=== PATIENT | male | born 1980 | race Caucasian/White ===

== ENCOUNTER 2016-11-21 17:01 | Inpatient (IN) | payer OTHER ==
[~2016-11-21] VITALS: Ht 167.6 cm; Wt 86.8 kg
[~2016-11-21 17:01] MED LIST: GABA400C5 PO; LEVE500 PO; MAALSUS PO; REME15TA PO; SERO300T PO; VENL100T PO; ZOFR4TAB PO
[2016-11-21 18:02] VITALS: BP 136/74; PULSE 94; RESP 18; TEMP 98; O2SAT 99
[2016-11-21] MEDS ORDERED: GABA400C5 PO (18:11)
[2016-11-21] MEDS ORDERED: QUET1TAB11 PO (18:11)
[2016-11-21] MEDS ORDERED: CLON2TAB PO (18:11)
[2016-11-21] MEDS ORDERED: ACETAMINOPHEN 325 MG TAB PO PRN (18:45)
[2016-11-21] MEDS ORDERED: ALUMINUM/MAGNESIUM/SIMETH 30 ML CUP PO PRN (18:45)
[2016-11-21] MEDS ORDERED: LORazepam 2 MG/ML VIAL IM PRN (18:45)
[2016-11-21] MEDS ORDERED: MAGNESIUM HYDROXIDE SUSP 30 ML CUP PO PRN (18:45)
[2016-11-22] MEDS: LORazepam 1 MG TAB PO PRN ×3 (01:28→21:05)
[2016-11-22 05:42] VITALS: BP 123/77; PULSE 78; RESP 18; TEMP 98.3; O2SAT 99
[2016-11-22 08:04] LABS: ANION GAP 8 MEQ/L (5-15); BICARBONATE 28.1 MEQ/L (21.0-32.0); BLOOD UREA NITROGEN 11 MG/DL (7-18); CHLORIDE 104 MEQ/L (98-107); GLOMERULAR FILTRATION RATE 101 ML/MIN (>89); POTASSIUM 3.6 MEQ/L (3.5-5.1); SODIUM (NA) 140 MEQ/L (136-145)
[2016-11-22 08:05] LABS: LDL CHOLESTEROL 71 MG/DL (0-99)
[2016-11-22] MEDS: REMOVE OLD NICOTINE PATCH T-DERMAL SCH ×2 (08:37→12:23)
[2016-11-22] MEDS: NICOTINE 21 MG/24 HR PATCH T-DERMAL SCH ×2 (08:37→12:24)
[2016-11-22 10:34] VITALS: BP 115/72; PULSE 79
--- NOTE | 2016-11-22 12:17 | PD.CONS ---
HPI Service [facility] Consult Requested By Reason for Consult medical management Primary Care Physician Unknown Diagnoses: History of Present Illness patient is a 36 y/o male with history of depression, seizure disorder and drug abuse who was admitted to the psych unit for suicidal ideation. he says that he' s been off his medications for the past few days. he says that he was on methadone till ten days ago. he says that he was trying to taper down his methadone. he's on Keppra for the seizure but he says that he stopped taking it five days ago. the last seizure was a month and half ago. he denies any abdominal pain but complaining of some nausea and diarrhea. Review of Systems Constitutional: DENIES: Fever, Weight loss, Chills, Night Sweats Eyes: DENIES: Blurred vision, Diplopia, Vision loss, Double Vision Ears, nose, mouth, throat: DENIES: Tinnitus, Vertigo, Throat pain, Epistaxis Respiratory: DENIES: Apneas, Cough, Snoring, Wheezing, Hemoptysis, Sputum production, Shortness of breath Cardiovascular: DENIES: Chest pain, Palpitations, Syncope, Dyspnea on Exertion , PND, Lower Extremity Edema, Orthopnea, Claudication Gastrointestinal: COMPLAINS OF: Diarrhea, Nausea, DENIES: Abdominal pain, Black stools, Bloody stools, Constipation, Vomiting, Difficulty Swallowing, Anorexia Genitourinary: DENIES: Urinary frequency, Urgency, Hematuria, Dysuria Musculoskeletal: DENIES: Joint pain, Muscle aches, Stiffness, Joint Swelling Integumentary: DENIES: Rash Neurologic: DENIES: Abnormal gait, Headache, Localized weakness, Paresthesias, Seizures, Speech Problems, Tremor, Poor Balance Psychiatric: COMPLAINS OF: Suicidal Ideation, DENIES: Anxiety, Confusion, Mood changes, Depression, Hallucinations, Agitation, Homicidal Ideation, Delusions Past Family Social History Allergies: Coded Allergies: No Known Allergies (Unverified , 11/20/16) Past Medical History depression seizure disorder chronic back pain Past Surgical History gastric bypass surgery foot surgery Reported Medications clonazepam effexor remeron seroquel neurontin keppra Active Ordered Medications Current Medications Lorazepam (Ativan) 1 mg Q6H PRN PO MODERATE TO SEVERE ANXIETY Last administered on 11/22/16at 01:28; Start 11/21/16 at 18:45 Lorazepam (Ativan Inj) 1 mg Q6H PRN IM MODERATE TO SEVERE ANXIETY; Start 11/21 at 18:45 Acetaminophen (Tylenol) 650 mg Q4H PRN PO Pain 1-5 or Temp >101F Last administered on 11/22/16at 01:28; Start 11/21/16 at 18:45 Magnesium Hydroxide (Milk Of Magnesia Liq) 30 ml DAILY PRN PO CONSTIPATION; Start 11/21/16 at 18:45 Al Hydrox/Mg Hydrox/Simethicone (Mag-Al Plus Susp Liq) 30 ml Q6H PRN PO DYSPEPSIA; Start 11/21/16 at 18:45 Nicotine (Habitrol 21 Mg Patch.24 Hr) 1 patch DAILY T-DERMAL Last administered on 11/22/16at 08:37; Start 11/22/16 at 09:00 Miscellaneous Information 1 DAILY T-DERMAL Last administered on 11/22/16at 08: 37; Start 11/22/16 at 09:00 Family History not relevant to this consult. Social History smokes two packs a day. admits to using illicit drugs.doesn't drink. Physical Exam Vital Signs Vital Signs Date Time Temp Pulse Resp B/P Pulse Ox O2 Delivery O2 Flow Rate FiO2 11/22/16 10:34 79 115/72 11/22/16 05:42 98.3 78 18 123/77 99 11/21/16 18:02 98.0 94 18 136/74 99 Physical Exam GENERAL: This is a well-nourished, well-developed patient, in no apparent distress. SKIN: No rashes, ecchymoses or lesions. HEAD: Atraumatic. Normocephalic. No temporal or scalp tenderness. EYES: Pupils equal round and reactive. Extraocular motions intact. No scleral icterus. No injection or drainage. ENT: Nose without bleeding, purulent drainage or septal hematoma. Throat without erythema, tonsillar hypertrophy or exudate. Uvula midline. Airway patent. NECK: Trachea midline. No JVD or lymphadenopathy. Supple, nontender, no meningeal signs. CARDIOVASCULAR: Regular rate and rhythm without murmurs, gallops, or rubs. RESPIRATORY: Clear to auscultation. Breath sounds equal bilaterally. No wheezes , rales, or rhonchi. GASTROINTESTINAL: Abdomen soft, non-tender, nondistended. No hepato-splenomegaly , or palpable masses. No guarding. MUSCULOSKELETAL: Extremities without clubbing, cyanosis, or edema. No joint tenderness, effusion, or edema noted. No calf tenderness. Negative Homans sign bilaterally. NEUROLOGICAL: Awake and alert. Cranial nerves II through XII intact. Motor and sensory grossly within normal limits. Five out of 5 muscle strength in all muscle groups. Normal speech. Laboratory Laboratory Tests Test 11/22/16 06:50 Sodium Level 140 Potassium Level 3.6 Chloride Level 104 Carbon Dioxide Level 28.1 Anion Gap 8 Blood Urea Nitrogen 11 Creatinine 0.86 Estimat Glomerular Filtration 101 Rate Random Glucose 82 Calcium Level 8.5 Triglycerides Level 82 Cholesterol Level 171 LDL Cholesterol 71 HDL Cholesterol 84.0 Cholesterol/HDL Ratio 2.03 Result Diagram: 11/22/16 0650 Assessment and Plan Assessment and Plan A/P - suicidal ideation- management per psych -seizure disorder; non-compliant with medications- resume keppra and check the level -chronic back pain; resume neurontin -history of poly-substance drug abuse- reportedly was recently on methadone; will verify the history and dosage with methadone clinic thank you for the consult. Discussed Condition With the patient and RN. Tasha Garcia MD Nov 22, 2016 12:17
[2016-11-22] MEDS: levETIRAcetam 500 MG TAB PO SCH ×2 (12:23→20:22)
--- NOTE | 2016-11-22 12:41 | HHI.PR ---
Addendum To [facility] Progress Not Reason for addendum: Additonal documentation (methadone clinic was contacted and he's been discharged from methadone clinic.) Tasha Garcia MD Nov 22, 2016 12:41
[2016-11-22] MEDS ORDERED: GABAPENTIN 400 MG CAP PO SCH (13:00)
[2016-11-22 15:58] LABS: HEMOGLOBIN A1a 1.3 %; HEMOGLOBIN A1b 1.6 %; HEMOGLOBIN Ao 86.2 %; HEMOGLOBIN LA1C 1.7 %; HEMOGLOBIN P3 3.4 %
[2016-11-22 16:18] LABS: AUTOMATED NEUTROPHIL # 6.6 TH/MM3 (1.8-7.7); BASOPHIL % 0.3 % (0.0-2.0); EOSINOPHIL % 0.4 % (0.0-4.0); HEMATOCRIT 40.7 % (39.0-51.0); LYMPHOCYTE # 1.7 TH/MM3 (1.0-4.8); MEAN CELL VOLUME 75.3 FL (80.0-100.0); MEAN CORPUSCULAR HEMOGLOBIN 24.3 PG (27.0-34.0); MEAN CORPUSCULAR HGB CONC 32.3 % (32.0-36.0); MONO % 5.2 % (0.0-8.0); NEUT % 75.1 % (16.0-70.0); PLATELET COUNT 320 TH/MM3 (150-450); RED CELL DISTRIBUTION WIDTH 23.5 % (11.6-17.2); WHITE BLOOD COUNT 8.8 TH/MM3 (4.0-11.0)
[2016-11-22 16:22] LABS: HEMO FLAGS AUTO DIFF
[2016-11-22 16:54] LABS: OVALOCYTES 1+ (NORMAL); PLATELET ESTIMATE SMEAR NORMAL (NORMAL); PLATELET MORPHOLOGY NORMAL (NORMAL); SCAN/DIFF AUTO DIFF CONFIRMED
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
[2016-11-22] MEDS: GABAPENTIN 400 MG CAP PO SCH (18:00)
[2016-11-22 19:24] VITALS: BP 125/53; PULSE 85; RESP 17; TEMP 99.1; O2SAT 99
[2016-11-22] MEDS: MIRTAZAPINE 15 MG TAB PO SCH (20:22)
[2016-11-22] MEDS: QUEtiapine FUMARATE 200 MG TAB PO SCH (20:22)
[2016-11-23 05:27] VITALS: BP 113/70; PULSE 94; RESP 16; TEMP 97.3; O2SAT 98
[2016-11-23] MEDS: VENLAFAXINE HCL XR 75 MG CAP PO SCH (08:32)
[2016-11-23] MEDS: levETIRAcetam 500 MG TAB PO SCH ×2 (08:32→21:08)
[2016-11-23] MEDS: QUEtiapine FUMARATE 200 MG TAB PO SCH ×2 (08:32→21:08)
[2016-11-23] MEDS: GABAPENTIN 400 MG CAP PO SCH ×3 (08:32→18:09)
[2016-11-23] MEDS: LORazepam 1 MG TAB PO PRN ×3 (08:45→21:08)
[2016-11-23 12:19] LABS: BLOOD, URINE NEG (NEG); GLUCOSE,URINE NEG (NEG); KETONE, URINE NEG (NEG); NITRITE,URINE NEG (NEG); PH, URINE 7.5 (5.0-8.5); URINE COLOR YELLOW (YELLW/STRAW)
[2016-11-23 12:20] LABS: COMMENT (UR) CULT NOT INDICATED; CULTURE IF INDICATED CULT NOT INDICATED
--- NOTE | 2016-11-23 12:47 | HHI.PYPN ---
Subjective Remarks Patient seen in room laying quietly in bed only states "I'm going through withdrawal" there is no visual signs of this is speech rate and rhythm or slow and organized and no signs of tremor nervousness or anxiety. He focuses on his prior substance abuse and various treatment modalities he has experienced parity acknowledges continued suicidality for now continue medication and observation Review of Systems Other No change since 11/22 Objective Alert: Yes [place]: Person, Place, Date Mood: Calm Affect: Restricted Memory Intact: Comment (fair) Hallucinations: Other (denies) Delusions: No Delusion Type: Other (vigilant) Suicidal: Ideation (states is continuing) Homicidal: Ideation (denies) Insight/Judgement Poor Labs Test 11/22/16 11/23/16 15:48 12:12 White Blood Count 8.8 TH/MM3 Red Blood Count 5.40 MIL/MM3 Hemoglobin 13.1 GM/DL Hematocrit 40.7 % Mean Corpuscular Volume 75.3 FL Mean Corpuscular Hemoglobin 24.3 PG Mean Corpuscular Hemoglobin 32.3 % Concent Red Cell Distribution Width 23.5 % Platelet Count 320 TH/MM3 Mean Platelet Volume 9.0 FL Neutrophils (%) (Auto) 75.1 % Lymphocytes (%) (Auto) 19.0 % Monocytes (%) (Auto) 5.2 % Eosinophils (%) (Auto) 0.4 % Basophils (%) (Auto) 0.3 % Neutrophils # (Auto) 6.6 TH/MM3 Lymphocytes # (Auto) 1.7 TH/MM3 Monocytes # (Auto) 0.5 TH/MM3 Eosinophils # (Auto) 0.0 TH/MM3 Basophils # (Auto) 0.0 TH/MM3 CBC Comment AUTO DIFF Differential Comment AUTO DIFF CONFIRMED Platelet Estimate NORMAL Platelet Morphology Comment NORMAL Ovalocytes 1+ Red Cell Morphology Comment Urine Color YELLOW Urine Turbidity CLEAR Urine pH 7.5 Urine Specific [place] 1.011 Urine Protein NEG mg/dL Urine Glucose (UA) NEG mg/dL Urine Ketones NEG mg/dL Urine Occult Blood NEG Urine Nitrite NEG Urine Bilirubin NEG Urine Urobilinogen LESS THAN 2.0 MG/DL Urine Leukocyte Esterase NEG Urine WBC LESS THAN 1 /hpf Microscopic Urinalysis Comment CULT NOT INDICATED Vitals/IOs Vital Signs Date Time Temp Pulse Resp B/P Pulse Ox O2 Delivery O2 Flow Rate FiO2 11/23/16 05:27 97.3 94 16 113/70 98 Assessment & Plan Problem List: (1) Bipolar disorder, most recent episode depressed ICD Code: F31.30 (2) Post-traumatic stress disorder, chronic ICD Code: F43.12 Assessment & Plan Estimated LOS: days patient remained suicidal isolating focusing somewhat on his addictions and is "withdrawal" for now continue treatment no change Justification for Cont. Inpt. At this time patient was really decompensate a lower level of care Uche Ramos MD Nov 23, 2016 12:47
[2016-11-23 19:31] VITALS: BP 114/47; PULSE 80; RESP 16; TEMP 99.4; O2SAT 100
[2016-11-23] MEDS: MIRTAZAPINE 15 MG TAB PO SCH (21:08)
[2016-11-24 05:38] VITALS: BP 135/78; PULSE 96; RESP 18; TEMP 98.1; O2SAT 99
[2016-11-24] MEDS: REMOVE OLD NICOTINE PATCH T-DERMAL SCH (09:00)
[2016-11-24] MEDS: levETIRAcetam 500 MG TAB PO SCH ×2 (09:35→20:13)
[2016-11-24] MEDS: LORazepam 1 MG TAB PO PRN ×3 (09:35→22:16)
[2016-11-24] MEDS: QUEtiapine FUMARATE 200 MG TAB PO SCH ×2 (09:35→20:12)
[2016-11-24] MEDS: GABAPENTIN 400 MG CAP PO SCH ×3 (09:35→18:04)
[2016-11-24] MEDS: VENLAFAXINE HCL XR 75 MG CAP PO SCH (09:36)
[2016-11-24] MEDS: NICOTINE 21 MG/24 HR PATCH T-DERMAL SCH (09:37)
--- NOTE | 2016-11-24 14:17 | HHI.PR ---
Subjective Remarks Follow-up visit for seizure disorder, drug abuse. Patient seen today. Reports he is doing well. No reports of seizure episode. Denies pain and discomfort. Denies SOB/ dyspnea. Denies chestpain, palpitations, headaches, dizziness. Denies fevers, chills, n/v/d. Objective Vitals Vital Signs Date Time Temp Pulse Resp B/P Pulse Ox O2 Delivery O2 Flow Rate FiO2 11/24/16 05:38 98.1 96 18 135/78 99 11/23/16 19:31 99.4 80 16 114/47 100 Result Diagram: 11/22/16 1548 11/22/16 0650 Objective Remarks GENERAL: This is a well-nourished, well-developed patient, in no apparent distress. SKIN: No rashes, ecchymoses or lesions. HEAD: Atraumatic. Normocephalic. No temporal or scalp tenderness. EYES: Pupils equal round and reactive. Extraocular motions intact. No scleral icterus. No injection or drainage. ENT: Nose without bleeding. Throat without erythema. Uvula midline. Airway patent. NECK: Trachea midline. No JVD or lymphadenopathy. Supple. CARDIOVASCULAR: Regular rate and rhythm without murmurs, gallops, or rubs. RESPIRATORY: Clear to auscultation. Breath sounds equal bilaterally. No wheezes , rales, or rhonchi. GASTROINTESTINAL: Abdomen soft, non-tender, nondistended. Bowel sounds active 4. MUSCULOSKELETAL: Extremities without clubbing, cyanosis, or edema. No joint tenderness, effusion, or edema noted. NEUROLOGICAL: Awake and alert. Motor and sensory grossly within normal limits. No focal neuro deficit. Normal speech. A/P Problem List: (1) Bipolar disorder, most recent episode depressed ICD Code: F31.30 Status: Acute (2) Seizure disorder ICD Code: G40.909 Status: Acute Assessment and Plan Patient is a 36-year-old male who came into the hospital under [place] act for suicidal ideation. Patient is now admitted inpatient psychiatry unit. Consulted for medical management. Suicidal ideation, depression- psychiatry team managing Seizure disorder - restarted Keppra. Awaiting for Keppra levels possibly low due to noncompliance. Readjust medication as needed. - Seizure activity reported. Continue with seizure precaution. DVT prop ambulation Written by Braxton Meyers, acting as scribe for Dr. Elliott on 11/24/16 at 11: 44. The documentation accurately reflects the work performed [id number] by me on 11/24/16 at 1144 Braxton John Nov 24, 2016 14:17 Gus Elliott MD Nov 26, 2016 14:57
--- NOTE | 2016-11-24 16:26 | HHI.PYPN ---
Subjective Remarks Patient was seen and case discussed with nursing. Patient is pleasant and cooperative with exam. Patient says he has had chronic auditory hallucinations that are getting more excessive sedation since the holidays. They're telling him to hurt himself but is able to ignore them. Patient is complaining that his medications are not working. Behaving well on the unit. And denies active suicidal ideations thought content or plan Objective Alert: Yes [place]: Person, Place, Date Mood: Calm Affect: Restricted Memory Intact: Comment (fair) Hallucinations: Other (denies) Delusions: No Delusion Type: Other (vigilant) Suicidal: Ideation (states is continuing) Homicidal: Ideation (denies) Insight/Judgement Poor Vitals/IOs Vital Signs Date Time Temp Pulse Resp B/P Pulse Ox O2 Delivery O2 Flow Rate FiO2 11/24/16 05:38 98.1 96 18 135/78 99 Assessment & Plan Problem List: (1) Bipolar disorder, most recent episode depressed ICD Code: F31.30 (2) Post-traumatic stress disorder, chronic ICD Code: F43.12 Assessment & Plan Consider medication change. Continue current treatment plan Justification for Cont. Inpt. Patient would decompensate in a less restrictive setting Yogesh Hernandez DO Nov 24, 2016 16:26
[2016-11-24] MEDS: MIRTAZAPINE 15 MG TAB PO SCH (20:13)
[2016-11-25 06:00] VITALS: BP 112/63; PULSE 89; RESP 18; TEMP 98.1; O2SAT 100
[2016-11-25] MEDS: NICOTINE 21 MG/24 HR PATCH T-DERMAL SCH (09:00)
[2016-11-25] MEDS: REMOVE OLD NICOTINE PATCH T-DERMAL SCH (09:00)
[2016-11-25] MEDS: LORazepam 1 MG TAB PO PRN ×2 (09:37→17:00)
[2016-11-25] MEDS: GABAPENTIN 400 MG CAP PO SCH ×3 (09:37→17:41)
[2016-11-25] MEDS: QUEtiapine FUMARATE 200 MG TAB PO SCH ×2 (09:37→20:29)
[2016-11-25] MEDS: VENLAFAXINE HCL XR 75 MG CAP PO SCH (09:38)
[2016-11-25] MEDS: levETIRAcetam 500 MG TAB PO SCH ×2 (09:38→20:29)
--- NOTE | 2016-11-25 11:18 | HHI.PYPN ---
Subjective Remarks Patient seen and examined with counselor Danita and nursing staff. Chart reviewed. I note that patient has been utilizing his Ativan more or less maximally while awake, amounting to about 3 mg daily. I note from the hospitalist testing consultant's documentation that the patient has been discharged from the methadone clinic. I also see a nursing notes that the patient was found palming one of his psychotropic medication tablets. Case discussed with nursing staff who reports patient is medication seeking. Nursing staff also notes that patient's presentation of psychiatric symptomatology is quite variable. On my examination today, patient is somewhat dysphoric. He reports that he "came here because I was thinking of ending my life." He reports he feels little changed today. No reported urge to hurt himself on the inpatient unit. Enumerates psychosocial stressors. Reports a history of BPAD and prior suicide attempts by OD. Reports history of abuse of opiates. Says he doesn't like his roommate (who, incidentally, is being discharged today) and says he might beat roommate up if roommate irritates patient. I have explained that this behavior will not be tolerated. I have instructed patient to come to nursing staff if he has perceived issues with peers. Denies side effects from medications. Review of Systems Other No physical complaints today Objective Alert: Yes [place]: Person (O x 3) Mood: Depressed Affect: Restricted (dysphoric) Memory Intact: Comment (Seems intact on clinical exam) Hallucinations: Other (No AVH) Delusions: No Delusion Type: Other (No delusions) Suicidal: Ideation (Ongoing SI, no reported plan/intent) Homicidal: Ideation (No HI but see above) Insight/Judgement Fair Remarks Somewhat fidgety but no other abnormal motor movements noted. No hand tremor, no diaphoresis, no mydriasis, no lacrimation/rhinorrhea. Thought process linear. Speech within normal limits for rate, tone and volume. Labs Labs reviewed. Vitals/IOs Vital Signs Date Time Temp Pulse Resp B/P Pulse Ox O2 Delivery O2 Flow Rate FiO2 11/25/16 06:00 98.1 89 18 112/63 100 Assessment & Plan Problem List: (1) Adjustment disorder Assessment & Plan: Rule-out component of drug-induced mood disorder ICD Code: F43.20 (2) Opiate dependence ICD Code: F11.20 Assessment & Plan I suspect a component of drug induced mood disorder or conscious simulation in patient's presentation today. Antisocial traits are present in this patient. For his reported dysphoria, I'll titrate his Remeron at bedtime. Taper Ativan with plans to discontinue as I fear he is overusing this medication. We could replace this with Vistaril or another antihistamine if needed. Mouth checks given his attempts to palm a pill. Appreciate hospitalist testing consultant input. Continue other medications and care as ordered. Justification for Cont. Inpt. Concerns for impairment in safety. Discharge Planning Pending outcome of further observation Request HC Surrog/Guard Advoc?: No Problem Qualifiers (1) Adjustment disorder: Qualified Code: F43.21 - Adjustment disorder with depressed mood (2) Opiate dependence: Qualified Code: F11.20 - Uncomplicated opioid dependence Leo Mota MD Nov 25, 2016 11:18
[2016-11-25] MEDS ORDERED: LORazepam 2 MG/ML VIAL IM PRN (18:45)
[2016-11-25 19:33] VITALS: BP 126/86; PULSE 86; RESP 18; TEMP 98.4; O2SAT 98
[2016-11-25] MEDS: MIRTAZAPINE 15 MG TAB PO SCH (20:28)
[2016-11-26] MEDS: LORazepam 1 MG TAB PO PRN (00:45)
[2016-11-26] MEDS ORDERED: LORazepam 0.5 MG TAB PO PRN (02:03)
[2016-11-26 05:42] VITALS: BP 124/83; PULSE 91; RESP 18; TEMP 97.4; O2SAT 94
[2016-11-26] MEDS: QUEtiapine FUMARATE 200 MG TAB PO SCH ×2 (08:38→21:36)
[2016-11-26] MEDS: levETIRAcetam 500 MG TAB PO SCH ×2 (08:38→21:36)
[2016-11-26] MEDS: VENLAFAXINE HCL XR 75 MG CAP PO SCH (08:39)
[2016-11-26] MEDS: REMOVE OLD NICOTINE PATCH T-DERMAL SCH (08:40)
[2016-11-26] MEDS: NICOTINE 21 MG/24 HR PATCH T-DERMAL SCH (08:40)
[2016-11-26] MEDS: GABAPENTIN 400 MG CAP PO SCH ×3 (09:00→17:04)
--- NOTE | 2016-11-26 11:22 | HHI.PYPN ---
Subjective Remarks Patient seen and examined and case discussed in treatment team. Chart reviewed. Case discussed with nursing staff who reports patient has been no behavioral problem. Patient has been transferred to the 2600, lower acuity inpatient psychiatric unit. On my examination today, patient complains of AH "driving me crazy." His description of these is fairly vague, but I am able to gather that he feels they are deprecatory. He also complains of "racing thoughts." He voices ongoing vague SI with no specific plan or intent. He is pleased to have moved units. Denies side effects from medications. He wants to try lithium as he reports he had a good response to this in the past. We have discussed other possible management strategies with the patient, but after a discussion of the relative risks and benefits, he still wants to try the lithium. Review of Systems Other No physical complaints. Objective Alert: Yes [place]: Person (Again O x 3) Mood: Anxious, Depressed Affect: Restricted (dysphoric) Memory Intact: Comment (Seems intact on clinical exam) Hallucinations: Auditory (As above), Visual (No VH) Delusions: No Delusion Type: Other (No delusional material) Suicidal: Ideation (Ongoing vague SI. No plan or intent.) Homicidal: Ideation (No HI.) Insight/Judgement Fair Remarks No motoric abnormalities noted. TP linear. Speech wnl for rate, tone, volume. No signs of withdrawal noted. Labs Labs reviewed. No new labs. Keppra level pending. Vitals/IOs Vital Signs Date Time Temp Pulse Resp B/P Pulse Ox O2 Delivery O2 Flow Rate FiO2 11/26/16 05:42 97.4 91 18 124/83 94 Assessment & Plan Problem List: (1) Adjustment disorder Assessment & Plan: R/o Drug-induced mood d/o. R/o BPAD. R/o Component of symptom exaggeration/malingering. ICD Code: F43.20 (2) Opiate dependence ICD Code: F11.20 Assessment & Plan Add lithium 300mg BID with plans to check a level after the appropriate interval. Check a TSH prior to starting lithium. Renal function intact. Keppra level pending and hospitalist to follow up on this. D/c Ativan and replace with Atarax PRN anxiety as this has less abuse potential and we could consider scheduling this if helpful for anxiety. Continue other medications and care as ordered. Justification for Cont. Inpt. Observation for impairments in safety (none noted so far). Medication changes requiring monitoring. Discharge Planning Pending psychiatric stabilization. Request HC Surrog/Guard Advoc?: No Problem Qualifiers (1) Adjustment disorder: Qualified Code: F43.21 - Adjustment disorder with depressed mood (2) Opiate dependence: Qualified Code: F11.20 - Uncomplicated opioid dependence Leo Mota MD Nov 26, 2016 11:22
[2016-11-26] MEDS: hydrOXYzine HCL 50 MG TAB PO PRN (14:51)
[2016-11-26 19:26] VITALS: BP 141/83; PULSE 101; RESP 18; TEMP 98.6; O2SAT 98
[2016-11-26] MEDS: MIRTAZAPINE 15 MG TAB PO SCH (21:36)
[2016-11-26] MEDS: LITHIUM CARBONATE 300 MG TAB PO SCH (21:36)
[2016-11-27] MEDS: hydrOXYzine HCL 50 MG TAB PO PRN ×2 (05:20→15:45)
[2016-11-27 05:57] VITALS: BP 129/73; PULSE 75; RESP 16; TEMP 97.9
[2016-11-27] MEDS: QUEtiapine FUMARATE 200 MG TAB PO SCH (08:28)
[2016-11-27] MEDS: GABAPENTIN 400 MG CAP PO SCH ×2 (08:28→12:17)
[2016-11-27] MEDS: levETIRAcetam 500 MG TAB PO SCH ×2 (08:28→20:12)
[2016-11-27] MEDS: LITHIUM CARBONATE 300 MG TAB PO SCH ×2 (08:28→20:12)
[2016-11-27] MEDS: NICOTINE 21 MG/24 HR PATCH T-DERMAL SCH (08:28)
[2016-11-27] MEDS: REMOVE OLD NICOTINE PATCH T-DERMAL SCH (08:28)
[2016-11-27] MEDS: VENLAFAXINE HCL XR 75 MG CAP PO SCH (08:29)
--- NOTE | 2016-11-27 14:40 | HHI.PYPN ---
Subjective Remarks Patient seen and examined. Chart reviewed. Case discussed with nursing staff who reports patient told her that auditory hallucinations were decreasing. He is noted to be social on the unit. On my examination today, patient says that he is sleeping a little better but is still struggling with voices. He says that they are largely deprecatory and negative and happen all the time. Remains fairly dysphoric with some ongoing vague suicidal ideation. No reported urge to hurt himself on the inpatient psychiatric unit. Denies side effects from medications. Says that the hydroxyzine is not helping with his anxiety. Requests benzodiazepine, but when I discussed my concerns about use of these agents, particularly in light of his history of substance use disorder , he agrees to trying to titrate his gabapentin instead. Review of Systems Other no physical complaints today Objective Alert: Yes [place]: Person (O x 3) Mood: Anxious, Depressed Affect: Blunted Memory Intact: Comment (Intact) Hallucinations: Auditory (Deprecatory.), Visual (None) Delusions: No Delusion Type: Other (No evident delusions) Suicidal: Ideation (Once again ongoing vague SI. No plan or intent.) Homicidal: Ideation (No HI.) Insight/Judgement Fair Remarks No abnormal motor movements noted. Labs Labs reviewed. No new labs. Vitals/IOs Vital Signs Date Time Temp Pulse Resp B/P Pulse Ox O2 Delivery O2 Flow Rate FiO2 11/27/16 05:57 97.9 75 16 129/73 11/26/16 19:26 98 Assessment & Plan Problem List: (1) Bipolar disorder ICD Code: F31.9 (2) Opiate dependence ICD Code: F11.20 Assessment & Plan After a discussion of the risks and benefits with pt, titrate Seroquel to 400mg/ 600mg to target auditory phenomena. I have explained that this is slightly above the recommended maximum dose for this agent. Titrate gabapentin to manage anxiety. Continue other medications and care as ordered. Justification for Cont. Inpt. Impairment in safety. Risk for decompensation in lower level of care. Medication changes requiring monitoring. Discharge Planning Pending psychiatric stabilization Request HC Surrog/Guard Advoc?: No Problem Qualifiers (1) Bipolar disorder: Qualified Code: F31.32 - Bipolar affective disorder, currently depressed, moderate (2) Opiate dependence: Qualified Code: F11.20 - Uncomplicated opioid dependence Leo Mota MD Nov 27, 2016 14:40
[2016-11-27] MEDS: GABAPENTIN 100 MG CAP PO SCH (17:17)
[2016-11-27 19:38] VITALS: BP 129/73; PULSE 95; RESP 18; TEMP 98
[2016-11-27] MEDS: MIRTAZAPINE 15 MG TAB PO SCH (20:11)
[2016-11-27] MEDS: QUEtiapine FUMARATE 300 MG TAB PO SCH (20:12)
[2016-11-28 06:04] VITALS: BP 123/67; PULSE 77; RESP 16; TEMP 98.1
[2016-11-28] MEDS: REMOVE OLD NICOTINE PATCH T-DERMAL SCH (08:09)
[2016-11-28] MEDS: NICOTINE 21 MG/24 HR PATCH T-DERMAL SCH (08:09)
[2016-11-28] MEDS: LITHIUM CARBONATE 300 MG TAB PO SCH ×2 (08:09→21:18)
[2016-11-28] MEDS: GABAPENTIN 100 MG CAP PO SCH ×3 (08:09→17:06)
[2016-11-28] MEDS: VENLAFAXINE HCL XR 75 MG CAP PO SCH (08:09)
[2016-11-28] MEDS: QUEtiapine FUMARATE 200 MG TAB PO SCH (08:10)
[2016-11-28] MEDS: levETIRAcetam 500 MG TAB PO SCH ×2 (08:10→21:19)
--- NOTE | 2016-11-28 13:41 | HHI.PYPN ---
Subjective Remarks Patient was seen and discussed with the staff home therapy rn. Patient claimed that he has been under a lot of stress recently he became homeless he broke up in the relationship he lost his job in the past he used to abuse opiates and heroin. Place at the present time he denies any suicidal ideation or urges her intentions or plan. Patient denied any auditory or visual hallucinations. Patient wants some medication for his anxiety. He claimed that the Klonopin did seem to have helped him and he wants 0.5 mg maybe couple times a day even though he has a history of drug abuse I will try that and monitor that he does not get more or started abusing it. No other side effects were complained. Continue with the same treatment Review of Systems Psychiatric: COMPLAINS OF: Anxiety, Depression Other Review of systems same as that off11/27/16 Objective Alert: Yes [place]: Person (O x 3) Mood: Anxious, Depressed Affect: Blunted Memory Intact: Comment (Intact) Hallucinations: Auditory (auditory hallucinations are going down), Visual (None ) Delusions: No Delusion Type: Other (No evident delusions) Suicidal: Ideation (Once again ongoing vague SI. No plan or intent.) Homicidal: Ideation (No HI.) Insight/Judgement Fair Vitals/IOs Vital Signs Date Time Temp Pulse Resp B/P Pulse Ox O2 Delivery O2 Flow Rate FiO2 11/28/16 06:04 98.1 77 16 123/67 11/26/16 19:26 98 Assessment & Plan Problem List: (1) Bipolar disorder ICD Code: F31.9 (2) Opiate dependence ICD Code: F11.20 Assessment & Plan Estimated LOS: days Justification for Cont. Inpt. Risk of safety. Monitoring of the medication and observing his reaction to it and titrating it. Risk of decompensation Request HC Surrog/Guard Advoc?: No Problem Qualifiers (1) Bipolar disorder: Qualified Code: F31.32 - Bipolar affective disorder, currently depressed, moderate (2) Opiate dependence: Qualified Code: F11.20 - Uncomplicated opioid dependence Jun Lambert MD Nov 28, 2016 13:41
[2016-11-28] MEDS: clonazePAM 0.5 MG TAB PO PRN (15:14)
[2016-11-28 18:12] VITALS: BP 131/79; PULSE 90; RESP 18; TEMP 98.7
[2016-11-28] MEDS: QUEtiapine FUMARATE 300 MG TAB PO SCH (21:18)
[2016-11-28] MEDS: MIRTAZAPINE 15 MG TAB PO SCH (21:18)
[2016-11-29 05:18] VITALS: BP 110/70; PULSE 76; RESP 18; TEMP 97.7; O2SAT 98
[2016-11-29 07:57] LABS: BICARBONATE 31.2 MEQ/L (21.0-32.0); POTASSIUM 4.1 MEQ/L (3.5-5.1)
[2016-11-29] MEDS: NICOTINE 21 MG/24 HR PATCH T-DERMAL SCH (09:00)
[2016-11-29] MEDS: REMOVE OLD NICOTINE PATCH T-DERMAL SCH (09:00)
[2016-11-29] MEDS: LITHIUM CARBONATE 300 MG TAB PO SCH ×3 (09:12→21:39)
[2016-11-29] MEDS: VENLAFAXINE HCL XR 75 MG CAP PO SCH (09:12)
[2016-11-29] MEDS: GABAPENTIN 100 MG CAP PO SCH ×3 (09:12→17:27)
[2016-11-29] MEDS: QUEtiapine FUMARATE 200 MG TAB PO SCH ×2 (09:12→21:40)
[2016-11-29] MEDS: levETIRAcetam 500 MG TAB PO SCH ×2 (09:12→21:39)
--- NOTE | 2016-11-29 12:28 | HHI.PYPN ---
Subjective Remarks Patient is seen in day room with nurse Angie, patient calm cooperative with me acknowledges continued auditory or visual hallucinations though he does deny suicidality. He is concerned about his medications feeling that the regimen of the Seroquel at this time is somewhat sedating during the day. We will changes Seroquel regimen to 300 mg a.m. and 700 mg at bedtime. [place] level drawn today is 0.2 will increase the lithium tooth regimen milligrams a.m. 600 mg at bedtime and check a level on 12/02 Review of Systems Other No somatic complaints today Objective Alert: Yes [place]: Person (O x 3) Mood: Anxious, Depressed Affect: Blunted Memory Intact: Comment (Intact) Hallucinations: Auditory (auditory hallucinations are going down), Visual (None ) Delusions: No Delusion Type: Other (No evident delusions) Suicidal: Ideation (Once again ongoing vague SI. No plan or intent.) Homicidal: Ideation (No HI.) Insight/Judgement Poor to fair Labs Test 11/29/16 11/29/16 06:47 10:54 Sodium Level 141 MEQ/L Potassium Level 4.1 MEQ/L Chloride Level 103 MEQ/L Carbon Dioxide Level 31.2 MEQ/L Anion Gap 7 MEQ/L Blood Urea Nitrogen 13 MG/DL Creatinine 0.92 MG/DL Estimat Glomerular Filtration 94 ML/MIN Rate Random Glucose 83 MG/DL 131 MG/DL Calcium Level 9.5 MG/DL [place] Level 0.2 MEQ/L Vitals/IOs Vital Signs Date Time Temp Pulse Resp B/P Pulse Ox O2 Delivery O2 Flow Rate FiO2 11/29/16 05:18 97.7 76 18 110/70 98 Assessment & Plan Problem List: (1) Bipolar disorder ICD Code: F31.9 (2) Opiate dependence ICD Code: F11.20 Assessment & Plan Estimated LOS: days patient continue psychotic though with some insight, please see medication changes above Justification for Cont. Inpt. At this time patient would severely decompensated placed in the lower level of care Discharge Planning To be determined Request HC Surrog/Guard Advoc?: No Problem Qualifiers (1) Bipolar disorder: Qualified Code: F31.32 - Bipolar affective disorder, currently depressed, moderate (2) Opiate dependence: Qualified Code: F11.20 - Uncomplicated opioid dependence Uche Ramos MD Nov 29, 2016 12:28
[2016-11-29] MEDS ORDERED: PILL SPLITTER OTHER PRN (12:30)
[2016-11-29] MEDS: clonazePAM 0.5 MG TAB PO PRN (17:27)
[2016-11-29 19:26] VITALS: BP 164/99; PULSE 113; RESP 18; TEMP 98.8; O2SAT 98
[2016-11-29] MEDS: MIRTAZAPINE 15 MG TAB PO SCH (21:38)
[2016-11-30] MEDS: clonazePAM 0.5 MG TAB PO PRN ×2 (06:08→17:25)
[2016-11-30 06:10] VITALS: BP 103/54; PULSE 70; RESP 18; TEMP 98.2; O2SAT 99
[2016-11-30] MEDS: LITHIUM CARBONATE 300 MG TAB PO SCH ×2 (08:53→21:27)
[2016-11-30] MEDS: VENLAFAXINE HCL XR 75 MG CAP PO SCH (08:53)
[2016-11-30] MEDS: levETIRAcetam 500 MG TAB PO SCH ×2 (08:53→21:27)
[2016-11-30] MEDS: GABAPENTIN 100 MG CAP PO SCH ×3 (08:53→17:25)
[2016-11-30] MEDS: REMOVE OLD NICOTINE PATCH T-DERMAL SCH (08:54)
[2016-11-30] MEDS: NICOTINE 21 MG/24 HR PATCH T-DERMAL SCH (08:54)
[2016-11-30] MEDS ORDERED: QUEtiapine FUMARATE 300 MG TAB PO SCH (09:00)
--- NOTE | 2016-11-30 12:00 | HHI.PYPN ---
Subjective Remarks Patient seen and examined with nursing staff. Chart reviewed. Case discussed with nursing staff. On my examination today, the patient continues to complain of poor sleep and describes himself as irritable and exhausted. He shares that he has a history of Neda-en-Y gastric bypass, and we discussed that this might explain his need for larger than usual doses of psychotropic medications due to absorption issues. He reports that he usually awakens in the [employer], between 2 and 4:00am and feels anxious and has difficulty getting back to sleep. Denies side effects from medications. Review of Systems Other No physical complaints today Objective Alert: Yes [place]: Person (O x 3) Mood: Anxious (ongoing), Depressed Affect: Blunted Memory Intact: Comment (Intact) Hallucinations: Other (No AVH reported today) Delusions: No Delusion Type: Other (No delusions) Suicidal: Ideation (No SI) Homicidal: Ideation (No HI) Insight/Judgement Fair Remarks No motoric abnormalities noted Labs Labs reviewed. Glucose noted; non-fasting sample. Vitals/IOs Vital Signs Date Time Temp Pulse Resp B/P Pulse Ox O2 Delivery O2 Flow Rate FiO2 11/30/16 06:10 98.2 70 18 103/54 99 Assessment & Plan Problem List: (1) Bipolar disorder ICD Code: F31.9 (2) Opiate dependence ICD Code: F11.20 Assessment & Plan I will place patient's morning dose of Seroquel in the [employer] around 3 AM when the patient reportedly arises so that he can get back to sleep. Continue other psychotropics as ordered. Continue other medications as ordered. I will request the dietitian evaluate patient given his reported history of Neda-en-Y gastric bypass. I will also ask the nursing staff to have the hospitalist come back given that the Keppra level is back and is somewhat low. Continue other care as ordered. Justification for Cont. Inpt. Risk for decompensation Discharge Planning Per Dr. Fraser Request HC Surrog/Guard Advoc?: No Problem Qualifiers (1) Bipolar disorder: Qualified Code: F31.32 - Bipolar affective disorder, currently depressed, moderate (2) Opiate dependence: Qualified Code: F11.20 - Uncomplicated opioid dependence Leo Mota MD Nov 30, 2016 12:00
[2016-11-30] MEDS: hydrOXYzine HCL 50 MG TAB PO PRN (13:13)
[2016-11-30 18:00] VITALS: BP 135/75; PULSE 92; RESP 18; TEMP 99.4; O2SAT 98
[2016-11-30] MEDS: MIRTAZAPINE 15 MG TAB PO SCH (21:27)
[2016-11-30] MEDS: QUEtiapine FUMARATE 200 MG TAB PO SCH (21:28)
[2016-12-01] MEDS ORDERED: QUEtiapine FUMARATE 300 MG TAB PO SCH ×2 (03:00→21:00)
[2016-12-01 06:07] VITALS: BP 124/81; PULSE 87; RESP 16; TEMP 97.6
[2016-12-01] MEDS: clonazePAM 0.5 MG TAB PO PRN ×2 (06:09→20:14)
[2016-12-01] MEDS: VENLAFAXINE HCL XR 75 MG CAP PO SCH (08:53)
[2016-12-01] MEDS: levETIRAcetam 500 MG TAB PO SCH ×2 (08:54→21:24)
[2016-12-01] MEDS: GABAPENTIN 100 MG CAP PO SCH ×3 (08:55→17:02)
[2016-12-01] MEDS: LITHIUM CARBONATE 300 MG TAB PO SCH ×2 (08:55→21:24)
[2016-12-01] MEDS: REMOVE OLD NICOTINE PATCH T-DERMAL SCH (08:59)
[2016-12-01] MEDS: NICOTINE 21 MG/24 HR PATCH T-DERMAL SCH (08:59)
--- NOTE | 2016-12-01 14:25 | HHI.PYPN ---
Subjective Remarks Patient seen and examined. Chart reviewed. Case discussed with nursing staff. On my examination today, patient reports that he was able to get back to sleep a little better with the shot coat tender dose of Seroquel but still feels like he needs an additional dose around the 9:00 hour to help manage his psychiatric symptoms. He continues to describe troubling nightmares and some ongoing low mood but does not voice any suicidal ideation. He denies side effects from medications. Review of Systems Other No physical complaints today Objective Alert: Yes [employer]: Person, Place (at least) Mood: Anxious, Depressed Affect: Other (Some disconnect between mood and affect. Doesn't appear very anxious.) Memory Intact: Comment (Remains intact) Hallucinations: Other (No AVH) Delusions: No Delusion Type: Other (No evident delusions) Suicidal: Ideation (No suicidal ideation) Homicidal: Ideation (No HI) Insight/Judgement Fair. Remarks Thought processes linear. Speech within normal limits for rate. No motoric abnormalities noted. Labs Labs reviewed. No new labs. Vitals/IOs Vital Signs Date Time Temp Pulse Resp B/P Pulse Ox O2 Delivery O2 Flow Rate FiO2 12/01/16 06:07 97.6 87 16 124/81 11/30/16 18:00 98 Assessment & Plan Problem List: (1) Bipolar disorder ICD Code: F31.9 (2) Opiate dependence ICD Code: F11.20 Assessment & Plan Adjust Seroquel dosing to 200/200/600mg. Continue other psychotropics as ordered. Appreciate dietitian recommendations. I have ordered a B12, folate, iron level given his history of gastric bypass. [place] level ordered for early next week. Continue other medications and care as ordered. Justification for Cont. Inpt. Medication adjustments Discharge Planning Per Dr. Fraser Request HC Surrog/Guard Advoc?: No Problem Qualifiers (1) Bipolar disorder: Qualified Code: F31.32 - Bipolar affective disorder, currently depressed, moderate (2) Opiate dependence: Qualified Code: F11.20 - Uncomplicated opioid dependence Leo Mota MD Dec 01, 2016 14:25
[2016-12-01] MEDS: MIRTAZAPINE 15 MG TAB PO SCH (21:24)
[2016-12-02] MEDS: QUEtiapine FUMARATE 200 MG TAB PO SCH ×2 (03:02→09:21)
[2016-12-02 05:58] VITALS: BP 113/64; PULSE 78; RESP 16; TEMP 98.5; O2SAT 99
[2016-12-02] MEDS: clonazePAM 0.5 MG TAB PO PRN (08:15)
[2016-12-02] MEDS: REMOVE OLD NICOTINE PATCH T-DERMAL SCH (09:00)
[2016-12-02] MEDS: LITHIUM CARBONATE 300 MG TAB PO SCH (09:16)
[2016-12-02] MEDS: VENLAFAXINE HCL XR 75 MG CAP PO SCH (09:17)
[2016-12-02] MEDS: levETIRAcetam 500 MG TAB PO SCH (09:17)
[2016-12-02] MEDS: GABAPENTIN 100 MG CAP PO SCH ×2 (09:17→13:15)
[2016-12-02] MEDS: NICOTINE 21 MG/24 HR PATCH T-DERMAL SCH (09:19)
[2016-12-02] MEDS ORDERED: GABA100C4 PO (10:28)
[2016-12-02] MEDS ORDERED: QUET1TAB10 PO (10:28)
[2016-12-02] MEDS ORDERED: LITH300T3 PO ×2 (10:28)
[2016-12-02] MEDS ORDERED: MIRTA15 PO (10:28)
--- NOTE | 2016-12-02 10:52 | HHI.DS ---
Psychiatry Discharge Summary Inpatient Psychiatric care?: Yes Advance Directive: No Reason Not Provided: NA Mental Health AdvanceDirective: No Health Care Proxy: No Admission Admission Date Nov 21, 2016 at 17:50 Admission Diagnosis: (1) Bipolar disorder, most recent episode depressed ICD Code: F31.30 Brief History This 36 yo WM presented from [facility] on a [place] [facility] stating he had been off his psychiatric medications and now wants to kill himself stating "if I had a gun I would have shot myself by now". Today on the Unit he says he has been depressed "for a while" although paper work from [facility] states the mood disorder had lasted only 3 days. He states he has low energy, anhedonia, poor sleep, sadness and mixed features such as pressured speech, racing thoughts grandiosity and racing thoughts. He said he is not presently suicidal, although he admits when he was at [facility] he had thoughts of overdosing on medications. His present medications are Seroquel 400 mgs BID, Effexor 150 XR qd, gabapentin 400 mg tid Remeron 15 mg qHS Requip and Keppra. The patient also reports PTSD symptoms which he associates with abuse in childhood, dissociative symptoms, blackouts, and a very extensive opiate abuse history. The patient reports about 15 to 20 psychiatric hospitalizations in the last 20 months and about 3 suicide attempts in the last 6 months by OD with heroin, Seroquel and mixed medications. The patients substance abuse history is remarkable for treatment in a methadone clinic beginning in 2005 for years, followed by suboxone treatment for years, then again in a methadone clinic for 2 years and more recently by a relapse on heroine. Tobacco Use In Past 30 Days: 5 or More Cigarettes/Day Alcohol Use: Never Hospital Course Patient was initially started on Keppra, Seroquel 400 BID, Remeron 15 mg qHS and Neurontin 400 mg TID, and evaluated after a few days on these medications. He reported continued symptoms and these medications and a trial of lithium was begun. He tolerated this trial and on 300 q AM and 600 mgs q PM he eventually demonstrated a level of 0.5. The patients mood and cognition improved. His depression cleared and he began to think more clearly. He was treated by Dr Svetlana Norris and notes, nursing report and patient reports all indicate he is appropriate for discharge. Results Blood Pressure 113 / 64 Vital Signs Date Time Temp Pulse Resp B/P Pulse Ox O2 Delivery O2 Flow Rate FiO2 12/02/16 05:58 98.5 78 16 113/64 99 Laboratory Tests Test 11/29/16 12/01/16 10:54 19:57 Random Glucose 131 MG/DL (74-106) Iron Level 21 MCG/DL (65-175) Laboratory Results Test 12/02/16 06:26 [place] Level 0.5 MEQ/L (0.5-1.5) Summary of Procedures none Pending results at discharge: No Medications # of Antipsychotic meds at D/C: 1 Approp Antipsych med options 1 - Minimum of three failed multiple trials of monotherapy. 2 - Documented plan to taper to monotherapy due to previous use of multiple meds OR cross-taper in progress at D/C. 3 - Documentation of augmentation of Clozapine. 4 - Justification other than those listed in allowable values 1-3, document here : Discharge Discharge Date: Dec 02, 2016 Discharge Diagnosis: (1) Bipolar disorder, most recent episode depressed Diagnosis: Principal ICD Code: F31.30 Mental Status Exam at Disch casually dressed, speech reg rate rhythm and prosody, gait wnl, mood "good" affect wnl TP direct TC no si, hi, ah, vh Memory intact Insight and judgment fair Pt Condition on Discharge: Stable Discharge Disposition: Discharge Home Discharge Instructions Diet Instructions: As Tolerated, No Restrictions Activities you can perform: Regular-No Restrictions Scheduled Appointment: Ryan Wise Appointment Date: Dec 06, 2016 Appointment Time: 7:30 New Medications: Gabapentin (Gabapentin) 100 Mg Cap 500 MG PO TID neuropathy #90 CAP [place] Carbonate ([place] Carbonate) 300 Mg Tab 300 MG PO DAILY mood stabilization #30 TAB [place] Carbonate ([place] Carbonate) 300 Mg Tab 600 MG PO HS mood stabilization #60 TAB Mirtazapine (Mirtazapine) 15 Mg Tab 30 MG PO HS Depression Control #30 TAB Quetiapine (Quetiapine) 300 Mg Tab 600 MG PO HS mood stabilization #30 TAB Continued Medications: Levetiracetam (Keppra) 500 Mg Tab 500 MG PO BID Control Seizures #60 Ref 0 TAB Discharge Time <= 30 minutes Discharge/Advance Care Plan Health Problems: (1) Bipolar disorder (2) Opiate dependence Goals to promote your health * To prevent worsening of your condition and complications * To maintain your health at the optimal level Directions to meet your goals Take your medications as prescribed Follow your dietary instruction Follow activity as directed Keep your appointments as scheduled Take your immunizations and boosters as scheduled If your symptoms worsen call your PCP, if no PCP go to Urgent Care Center or Emergency Room For 23/06 questions related to your inpatient stay or results of tests pending at discharge, please contact Dr. Amparo Fraser at Smoking is Dangerous to Your Health. Avoid second hand smoking Amparo Fraser MD Dec 02, 2016 10:52
== END 2016-12-02 14:00 | disposition home or self-care (01) | DRG 885 ==
LOC: H270 17:50 → H260 11-26 07:18
PROVIDERS: ADMIT Psychiatry & Neurology Addiction Medicine; ATTEND Psychiatry & Neurology Addiction Medicine
DX: F31.32 Bipolar disorder, current episode depressed, moderate (principal); R45.851 Suicidal ideations; F11.20 Opioid dependence, uncomplicated; G40.909 Epilepsy, unspecified, not intractable, without status epilepticus; F43.12 Post-traumatic stress disorder, chronic; G89.29 Other chronic pain; F17.210 Nicotine dependence, cigarettes, uncomplicated; M54.9 Dorsalgia, unspecified; Z62.810 Personal history of physical and sexual abuse in childhood; Z91.14 Patient's other noncompliance with medication regimen; Z91.5 Personal history of self-harm
CPT/HCPCS: 80048; 80061; 80177; 80178; 81001; 82607; 82746; 82947; 83036; 83540; 84443; 85025

== ENCOUNTER 2017-03-30 19:06 | Emergency (ER) | payer SELFPAY ==
[~2017-03-30] VITALS: Ht 167.6 cm; Wt 86.0 kg
[~2017-03-30 19:06] MED LIST changes: +CLON2TAB PO; +GABA100C4 PO; +LITH300T3 PO; +MIRTA15 PO; +QUET1TAB10 PO; +QUET1TAB11 PO; -SERO300T PO
[2017-03-30 19:08] VITALS: BP 160/80; PULSE 122; RESP 16; TEMP 99.8; O2SAT 97
--- NOTE | 2017-03-30 19:20 | PD ---
HPI Chief Complaint: Psychiatric Symptoms Time Seen by Provider: 19:18 Travel History International Travel<30 days: No Contact w/Intl Traveler<30days: No Traveled to known affect area: No History of Present Illness HPI 37-year-old male patient with history of suicidal ideation and attempts, presents to the ER today because he states that he is having suicidal ideation, has got very bad breakup, but has not tried to take any medications or ingestions or trying to harm himself yet. He denies any other issues. Modifying Factors: None Associated Signs & Symptoms: Suicidal ideation Risk Factors: History of suicidal attempts PFSH Past Medical History Cancer: No Cardiovascular Problems: No Diabetes: No Headaches: No Psychiatric: Yes Seizures: Yes Ulcer: Yes Past Surgical History Other Surgery: Yes (GASTRIC BYPASS) Social History Alcohol Use: No Tobacco Use: Yes Substance Use: Yes Allergies-Medications (Allergen,Severity, Reaction): Coded Allergies: No Known Allergies (Unverified , 03/30/17) Reported Meds & Prescriptions Reported Meds & Active Scripts Active Mirtazapine 15 Mg Tab 30 Mg PO HS [place] Carbonate 300 Mg Tab 600 Mg PO HS [place] Carbonate 300 Mg Tab 300 Mg PO DAILY Gabapentin 100 Mg Cap 500 Mg PO TID Reported Lorazepam 1 Mg Tab 1 Mg PO Q6H PRN Quetiapine (Quetiapine Fumarate) 400 Mg Tab 400 Mg PO HS Keppra (Levetiracetam) 500 Mg Tab 500 Mg PO BID Effexor (Venlafaxine HCl) 100 Mg Tab 150 Mg PO DAILY Review of Systems Except as stated in HPI: all other systems reviewed are Neg Physical Exam Narrative GENERAL: Well-developed young white male patient not currently in acute distress. Awake and oriented 3. SKIN: Focused skin assessment warm/dry. HEAD: Atraumatic. Normocephalic. EYES: Pupils equal and round. No scleral icterus. No injection or drainage. ENT: No nasal bleeding or discharge. Mucous membranes pink and moist. NECK: Trachea midline. No JVD. CARDIOVASCULAR: Regular rate and rhythm. No murmur appreciated. RESPIRATORY: No accessory muscle use. Clear to auscultation. Breath sounds equal bilaterally. GASTROINTESTINAL: Abdomen soft, non-tender, nondistended. Hepatic and splenic margins not palpable. MUSCULOSKELETAL: No obvious deformities. No clubbing. No cyanosis. No edema. NEUROLOGICAL: Awake and alert. No obvious cranial nerve deficits. Motor grossly within normal limits. Normal speech. PSYCHIATRIC: Appropriate mood and flat affect; insight and judgment normal. Data Data Last Documented VS Vital Signs Date Time Temp Pulse Resp B/P Pulse Ox O2 Delivery O2 Flow Rate FiO2 03/30/17 19:26 85 03/30/17 19:08 99.8 16 160/80 97 Orders Complete Blood Count With Diff (03/30/17 19:14) Comprehensive Metabolic Panel (03/30/17 19:14) Psych Screen (03/30/17 19:14) Drug Screen, Random Urine (03/30/17 19:14) Alcohol (Ethanol) (03/30/17 19:14) Lorazepam (Ativan) (03/30/17 20:15) Labs Laboratory Tests Test 03/30/17 19:25 White Blood Count 7.2 TH/MM3 Red Blood Count 4.66 MIL/MM3 Hemoglobin 11.8 GM/DL Hematocrit 36.0 % Mean Corpuscular Volume 77.3 FL Mean Corpuscular Hemoglobin 25.4 PG Mean Corpuscular Hemoglobin 32.8 % Concent Red Cell Distribution Width 17.9 % Platelet Count 253 TH/MM3 Mean Platelet Volume 10.2 FL Neutrophils (%) (Auto) 71.4 % Lymphocytes (%) (Auto) 17.1 % Monocytes (%) (Auto) 11.1 % Eosinophils (%) (Auto) 0.0 % Basophils (%) (Auto) 0.4 % Neutrophils # (Auto) 5.1 TH/MM3 Lymphocytes # (Auto) 1.2 TH/MM3 Monocytes # (Auto) 0.8 TH/MM3 Eosinophils # (Auto) 0.0 TH/MM3 Basophils # (Auto) 0.0 TH/MM3 CBC Comment DIFF FINAL Differential Comment Sodium Level 139 MEQ/L Potassium Level 3.3 MEQ/L Chloride Level 104 MEQ/L Carbon Dioxide Level 27.6 MEQ/L Anion Gap 7 MEQ/L Blood Urea Nitrogen 7 MG/DL Creatinine 1.09 MG/DL Estimat Glomerular Filtration 77 ML/MIN Rate Random Glucose 97 MG/DL Calcium Level 8.9 MG/DL Total Bilirubin 0.3 MG/DL Aspartate Amino Transf 17 U/L (AST/SGOT) Alanine Aminotransferase 22 U/L (ALT/SGPT) Alkaline Phosphatase 81 U/L Total Protein 7.8 GM/DL Albumin 4.0 GM/DL Ethyl Alcohol Level LESS THAN 3 MG/DL [facility] Medical Decision Making Medical Screen Exam Complete: Yes Emergency Medical Condition: Yes Medical Record Reviewed: Yes Interpretation(s) Laboratory Tests Test 03/30/17 19:25 Hemoglobin 11.8 GM/DL (13.0-17.0) Hematocrit 36.0 % (39.0-51.0) Mean Corpuscular Volume 77.3 FL (80.0-100.0) Mean Corpuscular Hemoglobin 25.4 PG (27.0-34.0) Red Cell Distribution Width 17.9 % (11.6-17.2) Neutrophils (%) (Auto) 71.4 % (16.0-70.0) Monocytes (%) (Auto) 11.1 % (0.0-8.0) Potassium Level 3.3 MEQ/L (3.5-5.1) Estimat Glomerular Filtration 77 ML/MIN (>89) Rate Differential Diagnosis Suicidal ideationrule out intoxication versus electrolyte abnormalities Narrative Course Patient currently denies any ingestion. Lab work did not indicate significant lateral light abnormalities or intoxication. My plan would be to medically clear the patient for psychiatric evaluation. Diagnosis Primary Impression: Suicidal ideation Disposition: 65 DISC TO PSYCH CARE FACILITY Condition: Stable Wallace Tavares MD Mar 30, 2017 19:20
[2017-03-30] MEDS ORDERED: LORA1TAB12 PO (19:22)
[2017-03-30 19:58] LABS: AUTOMATED NEUTROPHIL # 5.1 TH/MM3 (1.8-7.7); BASOPHIL % 0.4 % (0.0-2.0); HEMO FLAGS DIFF FINAL; LYMPH % 17.1 % (9.0-44.0); LYMPHOCYTE # 1.2 TH/MM3 (1.0-4.8); MEAN CELL VOLUME 77.3 FL (80.0-100.0); MEAN CORPUSCULAR HEMOGLOBIN 25.4 PG (27.0-34.0); MEAN CORPUSCULAR HGB CONC 32.8 % (32.0-36.0); MONO % 11.1 % (0.0-8.0); NEUT % 71.4 % (16.0-70.0); PLATELET COUNT 253 TH/MM3 (150-450); RED BLOOD COUNT 4.66 MIL/MM3 (4.50-5.90); RED CELL DISTRIBUTION WIDTH 17.9 % (11.6-17.2); WHITE BLOOD COUNT 7.2 TH/MM3 (4.0-11.0)
[2017-03-30] MEDS ORDERED: LORazepam 0.5 MG TAB PO ONE (20:15)
[2017-03-30 20:25] LABS: ANION GAP 7 MEQ/L (5-15)
[2017-03-30 20:28] LABS: ALKALINE PHOSPHATASE 81 U/L (45-117); ALT (GPT) 22 U/L (12-78); AST (GOT) 17 U/L (15-37); BICARBONATE 27.6 MEQ/L (21.0-32.0); BLOOD UREA NITROGEN 7 MG/DL (7-18); CHLORIDE 104 MEQ/L (98-107); GLOMERULAR FILTRATION RATE 77 ML/MIN (>89); POTASSIUM 3.3 MEQ/L (3.5-5.1); SODIUM (NA) 139 MEQ/L (136-145); TOTAL BILIRUBIN ADULT 0.3 MG/DL (0.2-1.0)
[2017-03-30 20:54] LABS: AMPHETAMINE, URINE POS (NEG); BARBITURATES, URINE NEG (NEG); COCAINE, URINE NEG (NEG)
[2017-03-30] MEDS ORDERED: POTASSIUM CHLORIDE 20 MEQ CONTROLLED RELEASE TAB PO ONE (21:00)
[2017-03-31 02:10] VITALS: BP 117/64; PULSE 76; RESP 18
[2017-03-31 06:13] VITALS: BP 136/74; PULSE 97; RESP 18
[2017-03-31 10:47] VITALS: BP 123/60; PULSE 100; RESP 18; O2SAT 95
[2017-03-31 18:33] VITALS: BP 121/56; PULSE 88; RESP 17; O2SAT 96
[2017-03-31 22:20] VITALS: BP 121/66; PULSE 86; RESP 16; O2SAT 97
[2017-04-01 02:16] VITALS: BP 125/71; PULSE 85; RESP 18; O2SAT 98
[2017-04-01 06:34] VITALS: BP 116/56; PULSE 70; RESP 16; O2SAT 97
[2017-04-01 09:20] VITALS: BP 116/56; PULSE 70; RESP 16; O2SAT 97
--- NOTE | 2017-04-01 09:30 | PD ---
History of Present Illness Chief Complaint: Psychiatric Symptoms Time Seen by Provider: 09:05 Travel History International Travel<30 Days: No Contact w/Intl Traveler<30days: No Known affected area: No Legal Status Legal Status: Voluntary History of Present Illness: History of Present Illness HPI 37-year-old male patient with history of substance abuse as well as history of bipolar disorder who presents to the ER on a voluntary basis reporting suicidal ideation secondary to a " bad breakup". He denies any other issues. Patient reports that he has been homeless x 3 months and that he has not been able to " get any help from any program". [facility] but was asked to leave because he was using substances. Also states that he has no family in the area and that his family " don't want to help me". He is requesting assistance with finding a program that will address his homelessness at this time. EMR is reviewed and he was last evaluated on Oct 2016 and was admitted to [facility] for treatment of substance induced mood disorder as well as bipolar disorder. Patient monitored in J pod over 24 hours with no behavioral concerns and no suicidality. He was placed on SMA as well. Patient seen. Case discussed with staff. Record reviewed. He is alert, oriented , calm and cooperative. Speech is clear and logical. No psychosis and no chela. Patient does not report suicidal ideation. Does not present any acute psychiatric symptomatology at this time. Once again he talks about the breakup with his girlfriend and his inability to obtain housing. He is focused on obtaining help with various social issues.He is calling a friend to pick him up [place] [facility]. PFSH Past Medical History Cancer: No Cardiovascular Problems: No Diabetes: No Headaches: No Psychiatric: Yes Seizures: Yes Ulcer: Yes Tetanus Vaccination: Unknown Influenza Vaccination: No Past Surgical History Other Surgery: Yes (GASTRIC BYPASS) Psychiatric History Psychiatric History Hx Psychiatric Treatment: HX OF BIPOLAR D/O, ANXIETY History of Inpatient Treatment: Yes ([facility] [place]) Guns or firearms in home: No Social History Born and raised in [place]. Completed college. Never . No children. Hx Alcohol Use: Yes (occasional ) Hx Tobacco Use: Yes Hx Substance Use: Yes (last used methadone 04/28/16) Substance Use Type: Crack, Marijuana, Amphetamines-Stimulants, Heroin, Cocaine , Synth Opiates-Pain Pills, Other Other Substances Used: ADDEROLL Hx of Substance Use Treatment: Yes Family Psychiatric History Grandmother completed suicide Allergies-Medications (Allergen,Severity, Reaction): Coded Allergies: No Known Allergies (Unverified , 03/30/17) Reported Meds & Prescriptions Reported Meds & Active Scripts Active Mirtazapine 15 Mg Tab 30 Mg PO HS [place] Carbonate 300 Mg Tab 600 Mg PO HS [place] Carbonate 300 Mg Tab 300 Mg PO DAILY Gabapentin 100 Mg Cap 500 Mg PO TID Reported Lorazepam 1 Mg Tab 1 Mg PO Q6H PRN Quetiapine (Quetiapine Fumarate) 400 Mg Tab 400 Mg PO HS Keppra (Levetiracetam) 500 Mg Tab 500 Mg PO BID Effexor (Venlafaxine HCl) 100 Mg Tab 150 Mg PO DAILY Review of Systems Except as stated in HPI: all other systems reviewed are Neg Exam Alert: Yes [place]: Person (ox4) Mood: Calm Affect: Appropriate Speech: Clear, Logical Eye Contact: Normal Memory Intact: Comment (no impairmetn) Delusions: No Suicidal: Ideation (none at present) Homicidal: Ideation (negative) Insight/Judgement poor. Poor MDM Medical Decision Making Medical Record Reviewed: Yes Assessment/Plan 37 year old male who presents on a voluntary status. He at this time is requesting help with various social issues including and predominantly housing. He does not assume responsibility for his sobriety and appears to blame his girlfriend, his family and everyone else for his current situation. Does not appear invested in his recovery. At this time he does not present imminent risk to self although due to his continued use of substances as well as current personality traits he presents a chronic risk of suicidal gestures as a mean of coping and as a means of getting his needs met. He is now expecting a friend top come and pick him up [place] [facility] . He will be provided with referrals to [facility] for treatment if he wishes to pursue outpatient treatment. Discharge Orders Diet Regular Basic (03/31/17 Dinner) Diet Regular Basic (04/01/17 Breakfast) Results Vital Signs Date Time Temp Pulse Resp B/P Pulse Ox O2 Delivery O2 Flow Rate FiO2 04/01/17 06:34 70 16 116/56 97 Room Air 04/01/17 02:16 85 18 125/71 98 Room Air 03/31/17 22:20 86 16 121/66 97 Room Air 03/31/17 18:33 88 17 121/56 96 Room Air 03/31/17 10:47 100 18 123/60 95 Room Air Diagnosis Primary Impression: substance induced mood disorder Ruled Out: Suicidal ideation Psychiatrically Cleared: Yes Med/ Other Pt Specific Info: No Change to Meds Disposition: 01 DISCHARGE HOME Condition: Stable Ilene Pascual [facility] April 01, 2017 09:30
== END 2017-04-01 11:04 | disposition home or self-care (01) ==
LOC: NEPC 19:06 → NEPJ 04-01 11:04
DX: F19.94 Other psychoactive substance use, unspecified with psychoactive substance-induced mood disorder (principal); F31.9 Bipolar disorder, unspecified; Z59.0 Homelessness; Z72.0 Tobacco use; Z98.84 Bariatric surgery status
CPT/HCPCS: 80053; 80178; 80307; 85025; 99285

== ENCOUNTER 2017-07-26 07:59 | Emergency (ER) | payer SELFPAY ==
[~2017-07-26] VITALS: Ht 167.6 cm; Wt 86.0 kg
[~2017-07-26 07:59] MED LIST changes: -CLON2TAB PO; -GABA400C5 PO; +LORA1TAB12 PO; -MAALSUS PO; -QUET1TAB10 PO; -REME15TA PO; -ZOFR4TAB PO
[2017-07-26 08:00] VITALS: BP 143/80; PULSE 86; RESP 20; TEMP 98.4; O2SAT 99
--- NOTE | 2017-07-26 09:55 | PD ---
HPI Chief Complaint: Medical Clearance Time Seen by Provider: 08:53 Travel History International Travel<30 days: No Contact w/Intl Traveler<30days: No Traveled to known affect area: No History of Present Illness HPI 37 room and felt his wrist about a week ago. Is told to follow-up with a 71 follow-up with. He was seen in [place]. He just moved to [facility]. He also complains out of his psychiatric medications. No acute complaints. History Past Medical History Narrative Medical Mental health disease Influenza Vaccination: Yes Social History Alcohol Use: Yes (occasional ) Tobacco Use: Yes Allergies-Medications (Allergen,Severity, Reaction): Coded Allergies: No Known Allergies (Unverified , 07/26/17) Reported Meds & Prescriptions Reported Meds & Active Scripts Active Mirtazapine 15 Mg Tab 30 Mg PO HS [place] Carbonate 300 Mg Tab 600 Mg PO HS Gabapentin 100 Mg Cap 500 Mg PO TID Reported Lorazepam 1 Mg Tab 1 Mg PO Q6H PRN Keppra (Levetiracetam) 500 Mg Tab 500 Mg PO BID Effexor (Venlafaxine HCl) 100 Mg Tab 150 Mg PO DAILY Review of Systems Except as stated in HPI: all other systems reviewed are Neg Physical Exam Narrative GENERAL: Well-appearing 37-year-old SKIN: Warm and dry. CARDIOVASCULAR: Warm and well perfused. RESPIRATORY: Normal rate and effort. MUSCULOSKELETAL: Left wrist in a splint. Radial/ulnar/median nerve functions intact. Good capillary refill sensation intact, no evidence of infection. NEUROLOGICAL: Awake and alert. No gross deficits. Data Data Last Documented VS Vital Signs Date Time Temp Pulse Resp B/P (MAP) Pulse Ox O2 Delivery O2 Flow Rate FiO2 07/26/17 08:00 98.4 86 20 143/80 (101) 99 Room Air MDM Medical Decision Making Medical Screen Exam Complete: Yes Emergency Medical Condition: No Differential Diagnosis Wrist fracture Narrative Course 37-year-old man, needs follow-up for his mental health conditions and his fractured wrist. No acute complaints. New To the area. No evidence of an acute emergency medical condition at this time. Recommended follow-up with the [facility]. Disposition: [facility]-ED USE ONLY Ryland Claire MD Jul 26, 2017 09:55
== END 2017-07-26 13:36 | disposition left against medical advice (07) ==
LOC: NEPC 07:59
DX: S62.102D Fracture of unspecified carpal bone, left wrist, subsequent encounter for fracture with routine healing (principal); X58.XXXD Exposure to other specified factors, subsequent encounter
CPT/HCPCS: 99281

== ENCOUNTER 2017-08-02 10:27 | Emergency (ER) | payer SELFPAY ==
[~2017-08-02] VITALS: Ht 167.6 cm; Wt 90.0 kg
[~2017-08-02 10:27] MED LIST changes: -QUET1TAB11 PO
[2017-08-02 10:29] VITALS: BP 154/81; PULSE 78; RESP 15; TEMP 98.3; O2SAT 99
--- NOTE | 2017-08-02 10:42 | PD ---
HPI . Left wrist pain Chief Complaint: Injury Time Seen by Provider: 10:41 Travel History International Travel<30 days: No Contact w/Intl Traveler<30days: No Traveled to known affect area: No History of Present Illness HPI 37-year-old male here with complaints of left first pain. Apparently 2 weeks ago patient sustained an injury and fractured his left wrist. He was seen at a hospital in [place] where he received what he tells me was a cast. He was instructed to wear the cast for a total of 6 weeks, however decided to take it off after 2 weeks. Patient tells me that he also had some type of injury yesterday where he may have reinjured his left wrist. He is now complaining of severe pain in the left wrist and limited range of motion. He is left-handed dominant. PFSH Past Medical History Hx Anticoagulant Therapy: No Anxiety: Yes Depression: Yes Cancer: No Cardiovascular Problems: No Chemotherapy: No Cerebrovascular Accident: No Diabetes: No Headaches: No Psychiatric: Yes Respiratory: No Seizures: Yes Ulcer: Yes Past Surgical History Other Surgery: Yes (GASTRIC BYPASS) Social History Alcohol Use: Yes (occasional ) Tobacco Use: Yes Substance Use: Yes (last used methadone 04/28/16) Allergies-Medications (Allergen,Severity, Reaction): Coded Allergies: No Known Allergies (Unverified , 07/26/17) Reported Meds & Prescriptions Reported Meds & Active Scripts Active Ibuprofen 800 Mg Tab 800 Mg PO Q8H PRN Mirtazapine 15 Mg Tab 30 Mg PO HS [place] Carbonate 300 Mg Tab 600 Mg PO HS Gabapentin 100 Mg Cap 500 Mg PO TID Reported Lorazepam 1 Mg Tab 1 Mg PO Q6H PRN Keppra (Levetiracetam) 500 Mg Tab 500 Mg PO BID Effexor (Venlafaxine HCl) 100 Mg Tab 150 Mg PO DAILY Review of Systems General / Constitutional: No: Fever Eyes: No: Visual changes HENT: No: Headaches Cardiovascular: No: Chest Pain or Discomfort Respiratory: No: Shortness of Breath Gastrointestinal: No: Abdominal Pain Genitourinary: No: Dysuria Musculoskeletal: Positive: Pain (left wrist ) Skin: No Rash Neurologic: No: Weakness Psychiatric: No: Depression Endocrine: No: Polydipsia Hematologic/Lymphatic: No: Easy Bruising Physical Exam Narrative GENERAL: AAO x 3, no acute distress, Well-nourished, well-developed patient. SKIN: Warm and dry. No visible rashes or bruising. HEAD: Normocephalic and atraumatic. EYES: No scleral icterus. No injection or drainage. ENT: No nasal drainage noted. Mucous membranes pink. Airway patent. NECK: Supple, trachea midline. No JVD. CARDIOVASCULAR: Regular rate and rhythm without murmurs, gallops, or rubs. RESPIRATORY: Breath sounds equal bilaterally. No accessory muscle use. No rhonchi or rales. GASTROINTESTINAL: Abdomen soft, non-tender, nondistended. EXTREMITIES: tenderness to left wrist with light palpation, limited ROM due to pain. BACK: No obvious deformity. NEURO: CN II-12 intact, PSYCH: AAO x 3, normal affect. Data Data Last Documented VS Vital Signs Date Time Temp Pulse Resp B/P (MAP) Pulse Ox O2 Delivery O2 Flow Rate FiO2 08/02/17 10:39 16 Room Air 08/02/17 10:29 98.3 78 154/81 (105) 99 Orders Orders Wrist, Complete ([id number]) (08/02/17 10:45) Splinting (08/02/17 ) Support Splint (08/02/17 12:07) Ibuprofen (Motrin) (08/02/17 12:15) MDM Medical Decision Making Medical Screen Exam Complete: Yes Emergency Medical Condition: Yes Medical Record Reviewed: Yes Differential Diagnosis old wrist fracture, bone contusion, less likely dislocation Narrative Course 37 yr old male here with left wrist pain s/p fracture 2 weeks ago. Xray ordered to reassess degree of fracture. Xray reviewed by my attending Dr. Puga and myself. Comminuted and impacted distal radius fracture. Splint ordered and sling. Advised f/u with outpatient ortho. Discussed with patient and he had a f/u with the ortho through the hospital he saw in [place]. Stressed importance of outpatient f/u. Diagnosis Primary Impression: Distal radius fracture, left Qualified Codes: S52.502A - Unspecified fracture of the lower end of left radius, initial encounter for closed fracture Referrals: Orthopedist Patient Instructions: General Instructions Additional Instructions: Please return to emergency department if your symptoms return or worsen. Follow up with your primary care provider. Take medications as prescribed. Please follow-up with orthopedist as we discussed. Med/Other Pt SpecificInfo: Prescription(s) given Scripts Ibuprofen (Ibuprofen) 800 Mg Tab 800 MG PO Q8H Y for Pain/Inflammation, #21 TAB 0 Refills Prov: Barry Puga MD 08/02/17 Disposition: 01 DISCHARGE HOME Condition: Stable Codie West Aug 02, 2017 10:42
--- NOTE | 2017-08-02 11:40 | RADRPT ---
EXAM DATE/TIME: 08/02/2017 11:21 [facility] COMPARISON: No previous studies available for comparison. INDICATIONS : Left wrist pain prior history of Fracture. MEDICAL HISTORY : None. SURGICAL HISTORY : None. ENCOUNTER: Initial ACUITY: 2 weeks PAIN SCORE: 8/10 LOCATION: Left upper extremity FINDINGS: Normal bone density. There is a comminuted fracture of the distal radial metaphysis, mildly impacted with intra-articular extension suspected. There is no angulation. CONCLUSION: Distal radius fracture is noted. Kana Garrett MD on August 02, 2017 at 11:38 Board Certified Radiologist. This report was verified electronically.
[2017-08-02] MEDS ORDERED: IBUP800T23 PO (12:12)
[2017-08-02] MEDS ORDERED: IBUPROFEN 800 MG TAB PO ONE (12:15)
== END 2017-08-02 12:38 | disposition home or self-care (01) ==
LOC: NEPD 10:27
DX: S52.502A Unspecified fracture of the lower end of left radius, initial encounter for closed fracture (principal); X58.XXXA Exposure to other specified factors, initial encounter
CPT/HCPCS: 29125; 73110; 99283

== ENCOUNTER 2017-08-17 21:17 | Emergency (ER) | payer SELFPAY ==
[~2017-08-17] VITALS: Ht 167.6 cm; Wt 86.0 kg
[~2017-08-17 21:17] MED LIST changes: +IBUP800T23 PO
[2017-08-17 21:21] VITALS: BP 149/84; PULSE 80; RESP 16; TEMP 98; O2SAT 98
== END 2017-08-18 00:17 | disposition left against medical advice (07) ==
LOC: NED 21:17
DX: Z53.21 Procedure and treatment not carried out due to patient leaving prior to being seen by health care provider (principal)
CPT/HCPCS: 99281